=== PATIENT | male | born 1960 | race Caucasian/White ===

== ENCOUNTER 2019-11-30 13:55 | Emergency (ER) | payer BC, OTHER ==
[2019-11-30] MEDS ORDERED: Sodium Chloride 0.9% 10 ML Syringe FLUSH PRN (15:05)
[2019-11-30] MEDS ORDERED: Ketorolac 30 MG/ML SDV IVPUSH ONE (15:05)
[2019-11-30] MEDS ORDERED: Ondansetron 4 MG/2 ML SDV IVPUSH ONE (15:05)
--- NOTE | 2019-11-30 15:09 | EDM.PDOC ---
ED HPI GENERAL MEDICAL PROBLEM - General Chief Complaint: Genitourinary Problem Stated Complaint: KIDNEY STONE? Time Seen by Provider: 11/30/19 15:00 Source of Information: Reports: Patient History Limitations: Reports: No Limitations - History of Present Illness INITIAL COMMENTS - FREE TEXT/NARRATIVE: Josep is a 59 year old male who presents to the ED today with c/o left flank pain that started this morning in left flank and radiates to left groin. Patient took Tylenol for pain but vomited shortly thereafter. He has only urinated small amounts, denies daylin hematuria, denies dysuria. Patient denies any scrotal swelling or testicular pain. Patient denies any fever or sick contacts. Hx of stone 10 years ago, states feels very similar. Onset: Today, Sudden (729) left flank Pain Score (Numeric/FACES): 5 - Related Data Allergies Allergy/AdvReac Type Severity Reaction Status Date / Time No Known Allergies Allergy Verified 11/30/19 14:52 Home Meds: Home Meds Fexofenadine/Pseudoephedrine [Miranda-D 24 Hour Tablet] 1 tab PO DAILY 11/30/19 [History] Lisinopril/Hydrochlorothiazide [Lisinopril-Hctz 10-12.5 mg Tab] 1 each PO DAILY 11/30/19 [History] atorvaSTATin [Lipitor] 20 mg PO DAILY 11/30/19 [History] Past Medical History Cardiovascular History: Reports: Hypertension Respiratory History: Reports: Other (See Below) Other Respiratory History: seasonal allergies - Past Surgical History Cardiovascular Surgical History: Reports: None Social & Family History - Tobacco Use Smoking Status *Q: Never Smoker - Recreational Drug Use Recreational Drug Use: No ED ROS GENERAL - Review of Systems Review Of Systems: Comprehensive ROS is negative, except as noted in HPI. ED EXAM, RENAL/ - Physical Exam Exam: See Below Exam Limited By: No Limitations General Appearance: Alert, WD/WN, No Apparent Distress Neck: Normal Inspection, Supple Respiratory/Chest: No Respiratory Distress, Lungs Clear Cardiovascular: Normal Peripheral Pulses, Regular Rate, Rhythm GI/Abdominal: Normal Bowel Sounds, Soft, Non-Tender Back Exam: CVA Tenderness (L) Extremities: Normal Inspection Neurological: Alert, Oriented, CN II-XII Intact Psychiatric: Normal Affect, Normal Mood Skin Exam: Warm, Dry, Intact Lymphatic: No Adenopathy Course - Vital Signs Last Recorded V/S: Last Vital Signs Temp 36.9 C 11/30/19 14:56 Pulse 74 11/30/19 15:33 Resp 12 11/30/19 15:33 BP 151/83 H 11/30/19 15:33 Pulse Ox 98 11/30/19 15:33 Josep is a 59 year old male, presents to the ED today with left flank pain. Please refer to HPI and focused exam. Likely ureteral stone. Patient given IV fluids and toradol here, is feeling better, CT scan shows stone in bladder, patient passed stone shortly after that when obtaining urine sample which was negative for infection. Patient to follow up with PCP for stone examination. Patient discharged in stable condition. - Orders/Labs/Meds Orders: Active Orders 24 hr Category Date Time Status Peripheral IV Care [RC] . DIRECTED Care 11/30/19 15:05 Active UA W/MICROSCOPIC [URIN] Stat Lab 11/30/19 15:55 Received Sodium Chloride 0.9% [Saline Flush] Med 11/30/19 15:05 Active 10 ml FLUSH ASDIRECTED PRN Peripheral IV Insertion Adult [OM.PC] Routine Oth 11/30/19 15:05 Ordered Medication Orders Sodium Chloride (Saline Flush) 10 ml FLUSH ASDIRECTED PRN PRN Reason: Keep Vein Open Last Admin: 11/30/19 15:26 Dose: 10 ml Meds: Medications Generic Name Dose Route Start Last Admin Trade Name Freq PRN Reason Stop Dose Admin Sodium Chloride 10 ml 11/30/19 15:05 11/30/19 15:26 Saline Flush FLUSH 10 ml ASDIRECTED PRN Administration Keep Vein Open Discontinued Medications Generic Name Dose Route Start Last Admin Trade Name Freq PRN Reason Stop Dose Admin Ketorolac Tromethamine 30 mg 11/30/19 15:05 11/30/19 15:29 Toradol IVPUSH 11/30/19 15:06 30 mg ONETIME ONE Administration Ondansetron HCl 4 mg 11/30/19 15:05 11/30/19 15:27 Zofran IVPUSH 11/30/19 15:06 4 mg ONETIME ONE Administration Departure - Departure Time of Disposition: 17:00 Disposition: Home, Self-Care 01 Condition: Good Clinical Impression: Kidney stone - Discharge Information Instructions: Kidney Stones Referrals: PCP,None [Primary Care Provider] - Forms: ED Department Discharge Sepsis Event Note (ED) - Evaluation Sepsis Screening Result: No Definite Risk - Focused Exam Vital Signs: Vital Signs Temp Pulse Resp BP Pulse Ox 11/30/19 15:33 74 12 151/83 H 98 11/30/19 14:56 36.9 C 91 16 127/83 98 11/30/19 14:47 36.9 C 91 16 127/83 98 - My Orders Last 24 Hours: My Active Orders 11/30/19 15:05 Peripheral IV Care [RC] . DIRECTED Sodium Chloride 0.9% [Saline Flush] 10 ml FLUSH ASDIRECTED PRN Peripheral IV Insertion Adult [OM.PC] Routine 11/30/19 15:55 UA W/MICROSCOPIC [URIN] Stat - Assessment/Plan Last 24 Hours: My Active Orders 11/30/19 15:05 Peripheral IV Care [RC] . DIRECTED Sodium Chloride 0.9% [Saline Flush] 10 ml FLUSH ASDIRECTED PRN Peripheral IV Insertion Adult [OM.PC] Routine 11/30/19 15:55 UA W/MICROSCOPIC [URIN] Stat
--- NOTE | 2019-11-30 15:52 | CT ---
Abdomen Pelvis wo Cont CLINICAL HISTORY: Left flank pain COMPARISON: 11/22/2009. TECHNIQUE: Axial tomographic images are obtained from the dome of the diaphragm to the pubic symphysis without IV contrast enhancement. No oral contrast was used. Auto dosage reduction and iterative reconstruction techniques employed. FINDINGS: The lung bases are clear. The liver shows no mass or biliary dilatation. The gallbladder has a normal contour. The spleen has a normal size and shape. The pancreas shows no mass or inflammatory change. The adrenal glands appear normal bilaterally. There is some left-sided pelvocaliectasis. There is some dilatation of the left ureter along its length. There is perinephric stranding. There is a 7 mm calcification in the midpole of the left kidney. The no ureteral calculus is identified. There appears to be some ureteral wall thickening along its length. There is some stranding in the periureteric fat. There is a small stone in the dependent portion of the bladder measuring 5 mm. There are multiple punctate right renal calculi. There is no obstruction. Right ureter has normal course and contour. Small bowel contour is nonacute. There is some generalized the thickening of the colon suggested. This may represent the colitis IMPRESSION: Left-sided mild pelvocaliectasis and ureteral dilatation with inflammatory changes in the ureter. There is perinephric and periureteric stranding. This is felt to be secondary to recent passage of a small stone which is seen in the dependent portion of the bladder Right collecting system is a normal contour. There is some generalized thickening of the colon. A pancolitis is not excluded.
== END 2019-11-30 16:34 | disposition home or self-care (01) ==
LOC: JP.ED 13:55
DX: N20.0 Calculus of kidney (principal); I10 Essential (primary) hypertension; Z79.899 Other long term (current) drug therapy
CPT/HCPCS: 74176; 81001; 96374; 96375; 99284; J1885; J2405